=== PATIENT | female | born 1935 | race Caucasian/White ===

== ENCOUNTER 2016-11-30 15:18 | Emergency (ER) | payer MEDICARE, OTHER ==
[~2016-11-30] VITALS: Ht 167.6 cm; Wt 70.8 kg
[~2016-11-30 15:18] MED LIST: AML5T; AMLO5TAB2 PO; ASP81CT; ASP81CT PO; ATOR20TA66 PO; ATR20T; HCT25T; HYDR-757 PO; LISI10TA2 PO; MELO7.5T
--- NOTE | 2016-11-30 16:12 | ED Upper Extremity ---
General Chief Complaint: Upper Extremity Stated Complaint: L SHOULDER PAIN/URINATING FREQUENTLY Nursing Triage Note: Pt. advised she was seen at her pcp office on 11/25/16 for left shoulder pain. She advises she purchased a new vaccume overhead cleaner maintainer and is experiencing pain since using the vaccume. She advises despite prescribed medications the pain is continual and she is also experiencing an increase in urination. Nursing Sepsis Screen: No Definite Risk History of Present Illness Time seen by provider: 15:30 Initial Comments Patient presents for left shoulder pain since 11/25/16 and 2 days of increased urination with some pain. She was started on hydrocodone 5/325 mg for the shoulder pain and prednisone dose pack. Her last medication was hydrocodone 1/2 at noon today. Onset: other Severity: mild Pain/Injury Location: left shoulder Method of Injury: unknown Modifying Factors: Improves With Pain Medication Allergies and Home Medications Allergies Coded Allergies: cefdinir (Verified Allergy, Unknown, 10/11/08) celecoxib (Verified Allergy, Unknown, 10/11/08) cephalexin (Verified Allergy, Unknown, 10/11/08) methocarbamol (Verified Allergy, Unknown, 10/11/08) Home Medications Amlodipine Besylate 5 Mg Tablet #30 5 MG PO DAILY (Reported) Aspirin 81 Mg Chew 81 MG PO DAILY (Reported) Atorvastatin Calcium 20 Mg Tablet #30 20 MG PO HS (Reported) Hydrocodone Bit/Acetaminophen 1 Each Tablet #14 0.5-1 EA PO Q6H PRN PRN SEVERE PAIN Prescribed by: TYRONE BONE on 04/28/152024 Lisinopril 10 Mg Tablet #30 10 MG PO DAILY (Reported) Nitrofurantoin Monohyd/M-Cryst 100 Mg Capsule #10 1 TAB PO BID Prescribed by: JOSE ALFREDO NAVARRETE on 11/30/16 1746 Constitutional: no symptoms reported see HPI EENTM: no symptoms reported see HPI Respiratory: no symptoms reported see HPI Cardiovascular: no symptoms reported see HPI Gastrointestinal: no symptoms reported see HPI Genitourinary: see HPI frequency pain Musculoskeletal: see HPI joint pain (left shoulder) muscle cramps (left trapezius) Skin: no symptoms reported see HPI Psychiatric/Neurological: No Symptoms Reported See HPI All Other Systems Reviewed Negative Unless Noted: Yes Past Zxoiagl-Pitpeo-Xabgou Hx Patient Social History Former Smoker/When Quit: Oct 20, 1987 Recent Foreign Travel: No Contact w/Someone Who Travel: No Recent Infectious Disease Expo: No Recent Hopitalizations: Yes Immunizations Up To Date Tetanus Booster (TDap): More than 5yrs Surgeries HX Surgeries: Yes (BATHOLIAN GLAND, R ANKLE) Surgeries: Orthopedic Respiratory Hx Respiratory Disorders: No Cardiovascular Hx Cardiac Disorders: Yes Cardiac Disorders: High Cholesterol, Hypertension Neurological Hx Neurological Disorders: No Reproductive System Hx Reproductive Disorders: No Genitourinary Hx Genitourinary Disorders: No Gastrointestinal Hx Gastrointestinal Disorders: Yes Musculoskeletal Hx Musculoskeletal Disorders: Yes Musculoskeletal Disorders: Osteoporosis Endocrine Hx Endocrine Disorders: No HEENT HX ENT Disorders: No Cancer Hx Cancer: No Psychosocial Hx Psychiatric Problems: Yes Blood Transfusions Hx Blood Disorders: No Reviewed Nursing Assessment Reviewed/Agree w Nursing PMH: Yes Physical Exam Vital Signs Vital Sign - Last 12Hours 11/30/16 15:39 Temp 97.6 Pulse 70 Resp 14 B/P 156/69 Pulse Ox 98 O2 Delivery Room Air Capillary Refill : Less Than 3 Seconds General Appearance: WD/WN no apparent distress HEENT: PERRL/EOMI normal ENT inspection TMs normal pharynx normal Neck: non-tender full range of motion supple normal inspection other ( tenderness along the left trapezius, no pain with resisted shoulder shrug, power 5/5) Cardiovascular: normal peripheral pulses regular rate, rhythm no murmur Respiratory: chest non-tender lungs clear normal breath sounds Gastrointestinal: normal bowel sounds non tender soft Back: normal inspection no CVA tenderness no vertebral tenderness Shoulder: normal inspection (left) no evidence of injury (resisted external strength 5/5, negative impingement, no AC joint tenderness, negative apprehension) normal ROM pain (lateral humeral head) Elbow/Forearm: normal inspection, non-tender, normal ROM, Left Neurologic/Tendon: normal sensation normal motor functions normal tendon functions Neurologic/Psychiatric: no motor/sensory deficits alert normal mood/affect oriented x 3 Skin: normal color warm/dry Lymphatic: no adenopathy Progress/Results/Core Measures Results/Orders Lab Results My Orders Medications Given in ED Vital Signs/I&O Blood Pressure Mean: 98 Progress Note : Time: 15:30 Progress Note Initial evaluation completed, we'll obtain a UA and left shoulder x-rays. 1630 reviewed x-ray results with patient, no abnormalities seen. 1645 UA results reviewed reviewed with patient will start with Macrobid 100 mg by mouth now. She complains of some anxiety, obtain EKG. 1715 EKG normal. Discussed discharge instructions with patient, she verbalizes understanding. ECG Initial ECG Impression Date: Nov 30, 2016 Initial ECG Impression Time: 17:03 Initial ECG Rate: 82 Initial ECG Rhythm: Normal Sinus Initial ECG Intervals: Normal Initial ECG Impression: Normal Initial ECG Comparisson: No Previous ECG Available Comment MT 139; QRSD 84; QT 384; QTc 449 [place] P -32; QRS 31; T -[address] Baugh agreed with interpretation. Diagnostic Imaging Diagonstic Imaging: Xray Plain Films/CT/US/NM/MRI: other Comments NAME: GRACIA VENTURA [facility] REC#: [id number] PT STATUS: REG ER : 1935 PHYSICIAN: JOSE ALFREDO NAVARRETE ADMIT DATE: 11/30/16/ER Draft Date of Exam:11/30/16 SHOULDER, LEFT, 3 VIEWS INDICATION: Left shoulder pain for two months. No known trauma. EXAMINATION: Left shoulder, 11/30/2016. COMPARISON: No priors available for comparison. FINDINGS: Three views of the left shoulder demonstrate calcifications within the visualized left upper lung, likely due to calcified pleural plaques. Chronic change in the shoulder with no acute fractures. There are likely old rib fractures throughout the left hemithorax. No definite acute fracture is appreciated. IMPRESSION: Chronic changes within the visualized left lung with no acute osseous abnormality appreciated. Dictated on workstation # [id number] Dict: 11/30/16 1633 Trans: 11/30/16 1646 [facility] [id number] Interpreted by: JOSE HAHN MD Electronically signed by: Reviewed: Reviewed by Me, Reviewed/Discussed Departure Impression Impression: Primary Impression: Urinary tract infection Qualified Code: N30.01 - Acute cystitis with hematuria Additional Impression: Trapezius strain Qualified Code: S46.812A - Strain of other muscles, fascia and tendons at shoulder and upper arm level, left arm, initial encounter Disposition: HOME, SELF-CARE Condition: Stable Departure-Patient Inst. Decision time for Depature: 17:15 Referrals: JANAY OBRIEN DO (PCP/Family) Primary Care Physician Patient Instructions: Neck Sprain (DC), Urinary Tract Infection, Adult (DC) Add. Discharge Instructions: All discharge instructions reviewed with patient and/or family. Voiced understanding. Increase fluid intake. 1 cup of cranberry juice a day. Warm moist compresses to left shoulder and neck. Take all of antibiotic. Follow-up appointment with Dr. Obrien for Friday. Return to emergency room for worsening symptoms, fever or new concerns. Scripts Nitrofurantoin Monohyd/M-Cryst (Macrobid 100 mg Capsule)100 Mg Capsule1 Tab PO BID #10 CAP Ref 0 Prov:JOSE ALFREDO NAVARRETE 11/30/16 Copy Copies To 1: JANAY OBRIEN AMY ARNP Nov 30, 2016 16:12 Initial ECG Rhythm: Normal Sinus Initial ECG Intervals: Normal Initial ECG Impression: Normal Initial ECG Comparisson: No Previous ECG Available Comment MT 139; QRSD 84; QT 384; QTc 449 [place] P -32; QRS 31; T -[address] Baugh agreed with interpretation. Diagnostic Imaging Diagonstic Imaging: Xray Plain Films/CT/US/NM/MRI: other Comments NAME: GRACIA VENTURA [facility] REC#: [id number] PT STATUS: REG ER : 1935 PHYSICIAN: JOSE ALFREDO NAVARRETE ADMIT DATE: 11/30/16/ER Draft Date of Exam:11/30/16 SHOULDER, LEFT, 3 VIEWS INDICATION: Left shoulder pain for two months. No known trauma. EXAMINATION: Left shoulder, 11/30/2016. COMPARISON: No priors available for comparison. FINDINGS: Three views of the left shoulder demonstrate calcifications within the visualized left upper lung, likely due to calcified pleural plaques. Chronic change in the shoulder with no acute fractures. There are likely old rib fractures throughout the left hemithorax. No definite acute fracture is appreciated. IMPRESSION: Chronic changes within the visualized left lung with no acute osseous abnormality appreciated. Dictated on workstation # [id number] Dict: 11/30/16 1633 Trans: 11/30/16 1646 [facility] [id number] Interpreted by: JOSE HAHN MD Electronically signed by: Reviewed: Reviewed by Me, Reviewed/Discussed Departure Impression Impression: Primary Impression: Urinary tract infection Qualified Code: N30.01 - Acute cystitis with hematuria Additional Impression: Trapezius strain Qualified Code: S46.812A - Strain of other muscles, fascia and tendons at shoulder and upper arm level, left arm, initial encounter Disposition: 01 HOME, SELF-CARE Condition: Stable Departure-Patient Inst. Decision time for Depature: 17:15 Referrals: JANAY OBRIEN DO (PCP/Family) Primary Care Physician Patient Instructions: Neck Sprain (DC), Urinary Tract Infection, Adult (DC) Add. Discharge Instructions: All discharge instructions reviewed with patient and/or family. Voiced understanding. Increase fluid intake. 1 cup of cranberry juice a day. Warm moist compresses to left shoulder and neck. Take all of antibiotic. Follow-up appointment with Dr. Obrien for Friday. Return to emergency room for worsening symptoms, fever or new concerns. Scripts Nitrofurantoin Monohyd/M-Cryst (Macrobid 100 mg Capsule)100 Mg Capsule1 Tab PO BID #10 CAP Ref 0 Prov:JOSE ALFREDO NAVARRETE 11/30/16 Copy Copies To 1: JANAY OBRIEN AMY ARNP Nov 30, 2016 16:12
--- NOTE | 2016-11-30 16:46 | Diagnostic Imaging Report ---
INDICATION: Left shoulder pain for two months. No known trauma. EXAMINATION: Left shoulder, 11/30/2016. COMPARISON: No priors available for comparison. FINDINGS: Three views of the left shoulder demonstrate calcifications within the visualized left upper lung, likely due to calcified pleural plaques. Chronic change in the shoulder with no acute fractures. There are likely old rib fractures throughout the left hemithorax. No definite acute fracture is appreciated. IMPRESSION: Chronic changes within the visualized left lung with no acute osseous abnormality appreciated. Dictated by: Dictated on workstation # [id number]
[2016-11-30 17:15] LABS: BILIRUBIN,URINE NEGATIVE (NEGATIVE); KETONES,URINE NEGATIVE (NEGATIVE); LEUKOCYTE ESTERASE ,URINE 2+ (NEGATIVE); NITRITE,URINE NEGATIVE (NEGATIVE); PH,URINE 6 (5-9); PROTEIN,URINE NEGATIVE (NEGATIVE); UROBILINOGEN,URINE NORMAL (NORMAL)
[2016-11-30] MEDS ORDERED: HYDROcodone/APAP 5 MG/325 MG (LORTAB) TAB PO STA (17:20)
[2016-11-30 17:25] LABS: SQUAMOUS EPITHELIAL CELL,UR 0-2 /HPF
[2016-11-30] MEDS ORDERED: NITROFURANTOIN 100 MG (MACROBID) CAPSULE PO ONE (17:45)
[2016-11-30] MEDS ORDERED: NITR-65 PO (17:46)
[2016-11-30 17:55] VITALS: BP 156/69
== END 2016-11-30 18:14 | disposition home or self-care (01) ==
LOC: EDUNIT# 15:18 → ER 15:19
DX: N39.0 Urinary tract infection, site not specified (principal); S29.012A Strain of muscle and tendon of back wall of thorax, initial encounter; I10 Essential (primary) hypertension; Z79.82 Long term (current) use of aspirin; Z79.899 Other long term (current) drug therapy; X50.3XXA Overexertion from repetitive movements, initial encounter; Y93.E3 Activity, vacuuming; Y92.009 Unspecified place in unspecified non-institutional (private) residence as the place of occurrence of the external cause; Y99.8 Other external cause status
CPT/HCPCS: 73030; 81000; 87077; 87088; 87186; 93005

== ENCOUNTER → 2019-09-27 | Outpatient (CLI) | payer MEDICARE, OTHER ==
[~2019-09-27] MED LIST changes: +NITR-65 PO
--- NOTE | 2019-09-27 15:25 | Diagnostic Imaging Report ---
INDICATION: Low back pain. TECHNIQUE: Three views of the lumbar spine were obtained. FINDINGS: There is an age indeterminate compression fracture of the L1 vertebral body. The remaining lumbar vertebral body heights are well-maintained. There is no spondylolysis or spondylolisthesis. There is some lower lumbar hypertrophic degenerative facet disease. IMPRESSION: Age-indeterminate fracture of the L1 vertebral body. If there is high clinical concern that this may be acute, further evaluation with MRI should be considered as this would likely be amenable to kyphoplasty. Dictated by: Dictated on workstation # [id number]
== END ==
LOC: RAD 14:35
PROVIDERS: ATTEND Family Medicine
DX: S32.019A Unspecified fracture of first lumbar vertebra, initial encounter for closed fracture (principal); X58.XXXA Exposure to other specified factors, initial encounter
CPT/HCPCS: 72100

== ENCOUNTER 2020-09-20 05:54 | Outpatient (RCR) | payer MEDICARE, OTHER ==
[~2020-09-20] VITALS: Ht 157.5 cm; Wt 61.4 kg
[~2020-09-20 05:54] MED LIST changes: +AMLO-251 PO; +ASPI-999 PO
== END 2020-09-21 09:44 | disposition home or self-care (01) ==
LOC: PREOP 05:54
PROVIDERS: ATTEND Specialist
DX: Z01.812 Encounter for preprocedural laboratory examination (principal); H26.8 Other specified cataract; Z20.828 Contact with and (suspected) exposure to other viral communicable diseases
CPT/HCPCS: 87635

== ENCOUNTER → 2020-09-22 | Day surgery (SDC) | payer MEDICARE, OTHER ==
[~2020-09-22] VITALS: Ht 157.5 cm; Wt 61.4 kg
[~2020-09-22] MED LIST changes: +LIDOCAINE PF 1% 2 ML VIAL IR PRN; +MIDAZOLAM 2 MG/2 ML (VERSED) VIAL ONE; +MOXIFLOXACIN OPHTH SOLN 5 MG/ML 0.3 ML SYRINGE OP ONE; +POVIDONE (BETADINE) OPHTH SOLN 5% 30 ML OP ONE; +TIMOLOL MALEATE 0.5% 5 ML (TIMOPTIC) BTL OU PRN; +acetaZOLAMIDE ER 500 MG CAP (DIAMOX SEQUELS) PO ONE
[2020-09-22 09:15] VITALS: BP 145/71
[2020-09-22] MEDS: TETRACAINE 0.5% OPHTH SOLN 4 ML BTL (SINGLE DOSE ONLY) OU PRN ×4 (09:19→09:35)
[2020-09-22] MEDS: PHENYLEPHRINE 10% OPHTH (NEO-SYN) 5 ML BTL OU SCH ×3 (09:25→09:35)
[2020-09-22] MEDS: TROPICAMIDE 1% OPH SOLN (MYDRIACYL) 15 ML BTL OP SCH ×3 (09:25→09:35)
--- NOTE | 2020-09-22 10:08 | Ophthalmologist Pre-Op Note ---
Pre-Operative Progress Note H&P Reviewed The H&P was reviewed, patient examined and no changes noted. Date H&P Reviewed: Sep 22, 2020 Time H&P Reviewed: 10:08 Pre-Op Dx Cataract, Right Eye SUSAN ADDISON MD Sep 22, 2020 10:08
--- NOTE | 2020-09-22 10:35 | Ophthalmology Operative Report ---
Cataract removal/placement IOL PREOPERATIVE DIAGNOSIS: 1. Mature Cataract Left Eye 2. Stain the anterior capsule with Vision Blue. POSTOPERATIVE DIAGNOSIS: 1. Mature Cataract Left Eye 2. Stain the anterior capsule with Vision Blue. PROCEDURE: 1. Cataract removal and placement of posterior chamber implant, left eye. 2. Stain the anterior capsule with Vision Blue. SURGEON: Selwyn Addison ANESTHESIA: Topical with sedation COMPLICATIONS: None ESTIMATED BLOOD LOSS: Minimal DESCRIPTION OF PROCEDURE: After proper informed consent was obtained, the patient, 84 female ,was taken to the Operating Room and the left eye was anesthetized with tetracaine. The left eye was then prepped and draped in the usual manner. A wire lid speculum was placed. A paracentesis was made at the left hand position. Preservative free lidocaine was injected into anterior chamber followed by viscoelastic. A clear corneal incision was made in the temporal position. A capsulorrhexis was performed and the central nuclear and cortical material were removed. Vision blue was used to visualize capsule. The posterior capsule was polished and Jorje [id number] 17.5IOL was placed into the capsular bag. The residual vi scoelastic was aspirated and balanced saline solution was injected into the anterior chamber. Moxifloxacin was injected into the anterior chamber. The wound was checked and found to be water tight. The patient tolerated the procedure well without complications. SELWYN ADDISON MD Sep 22, 2020 10:35
[2020-09-22 10:39] VITALS: BP 141/61
--- NOTE | 2020-09-22 11:09 | Anesthesia-General Post-Op ---
MAC Patient Condition Mental Status/LOC: Same as Preop Cardiovascular: Satisfactory Nausea/Vomiting: Absent Respiratory: Satisfactory Pain: Controlled Complications: Absent Post Op Complications Complications None Follow Up Care/Instructions Patient Instructions None needed. Anesthesiology Discharge Order Discharge Order Patient is doing well, no complaints, stable vital signs, no apparent adverse anesthesia problems. No complications reported per nursing. ROXANA DERAS CRNA Sep 22, 2020 11:09
== END ==
LOC: SDC 08:50
PROVIDERS: ATTEND Specialist
DX: H25.12 Age-related nuclear cataract, left eye (principal); I10 Essential (primary) hypertension; E78.00 Pure hypercholesterolemia, unspecified; Z79.899 Other long term (current) drug therapy; Z88.1 Allergy status to other antibiotic agents; Z88.8 Allergy status to other drugs, medicaments and biological substances
CPT/HCPCS: 66982; V2632

== ENCOUNTER 2020-09-27 05:37 | Outpatient (RCR) | payer MEDICARE, OTHER ==
[~2020-09-27] VITALS: Ht 157 cm; Wt 61.3 kg
[~2020-09-27 05:37] MED LIST changes: -LIDOCAINE PF 1% 2 ML VIAL IR PRN; -MIDAZOLAM 2 MG/2 ML (VERSED) VIAL ONE; -MOXIFLOXACIN OPHTH SOLN 5 MG/ML 0.3 ML SYRINGE OP ONE; -POVIDONE (BETADINE) OPHTH SOLN 5% 30 ML OP ONE; -TIMOLOL MALEATE 0.5% 5 ML (TIMOPTIC) BTL OU PRN; -acetaZOLAMIDE ER 500 MG CAP (DIAMOX SEQUELS) PO ONE
== END 2020-09-27 11:37 | disposition home or self-care (01) ==
LOC: PREOP 05:37
PROVIDERS: ATTEND Specialist
DX: Z01.818 Encounter for other preprocedural examination (principal); H25.11 Age-related nuclear cataract, right eye; Z20.828 Contact with and (suspected) exposure to other viral communicable diseases
CPT/HCPCS: 87635

== ENCOUNTER 2020-09-29 09:55 | Day surgery (SDC) | payer MEDICARE, OTHER ==
[~2020-09-29] VITALS: Ht 157 cm; Wt 61.3 kg
[2020-09-29 09:55] VITALS: BP 176/79
[2020-09-29] MEDS: TETRACAINE 0.5% OPHTH SOLN 4 ML BTL (SINGLE DOSE ONLY) OU PRN ×4 (10:07→10:31)
[2020-09-29] MEDS ORDERED: MIDAZOLAM 2 MG/2 ML (VERSED) VIAL ONE (10:12)
[2020-09-29] MEDS ORDERED: TIMOLOL MALEATE 0.5% 5 ML (TIMOPTIC) BTL OU PRN (10:15)
[2020-09-29] MEDS ORDERED: MOXIFLOXACIN OPHTH SOLN 5 MG/ML 0.3 ML SYRINGE OP ONE (10:15)
[2020-09-29] MEDS ORDERED: LIDOCAINE PF 1% 2 ML VIAL IR PRN (10:15)
[2020-09-29] MEDS ORDERED: POVIDONE (BETADINE) OPHTH SOLN 5% 30 ML OP ONE (10:15)
[2020-09-29] MEDS: PHENYLEPHRINE 10% OPHTH (NEO-SYN) 5 ML BTL OU SCH ×3 (10:19→10:31)
[2020-09-29] MEDS: TROPICAMIDE 1% OPH SOLN (MYDRIACYL) 15 ML BTL OP SCH ×3 (10:19→10:31)
--- NOTE | 2020-09-29 10:51 | Ophthalmologist Pre-Op Note ---
Pre-Operative Progress Note H&P Reviewed The H&P was reviewed, patient examined and no changes noted. Date H&P Reviewed: Sep 29, 2020 Time H&P Reviewed: 10:51 Pre-Op Dx Cataract, Right Eye SUSAN ADDISON MD Sep 29, 2020 10:51
--- NOTE | 2020-09-29 11:17 | Ophthalmology Operative Report ---
Cataract removal/placement IOL PREOPERATIVE DIAGNOSIS: Cataract Right Eye POSTOPERATIVE DIAGNOSIS: Cataract Right Eye PROCEDURE: Cataract removal and placement of posterior chamber implant, right eye SURGEON: Selwyn Addison ANESTHESIA: Topical with sedation COMPLICATIONS: None ESTIMATED BLOOD LOSS: Minimal DESCRIPTION OF PROCEDURE: After proper informed consent was obtained, the patient, a 84 female, was taken to the Operating Room and the right eye was anesthetized with tetracaine. The right eye was then prepped and draped in the usual manner. A wire lid speculum was placed. A paracentesis was made at the left hand position. Preservative free lidocaine was injected into the anterior chamber followed by viscoelastic. A clear corneal incision was made in the temporal position. A capsulorrhexis was preformed and the central nuclear and cortical material were removed. The posterior capsule was polished and Jorje 18.0 AU00T0 IOL was placed into the capsular bag. The residual viscoelastic was aspirated and balanced saline solution was injected into the anterior chamber. Moxifloxacin was injected into the anterior chamber. The wound was checked and found to be water tight. The patient tolerated the procedure well without complications. SELWYN ADDISON MD Sep 29, 2020 11:17
[2020-09-29 11:28] VITALS: BP 152/63
[2020-09-29] MEDS ORDERED: acetaZOLAMIDE ER 500 MG CAP (DIAMOX SEQUELS) PO ONE (11:30)
--- NOTE | 2020-09-29 11:37 | Anesthesia-General Post-Op ---
MAC Patient Condition Mental Status/LOC: Same as Preop Cardiovascular: Satisfactory Nausea/Vomiting: Absent Respiratory: Satisfactory Pain: Controlled Complications: Absent Post Op Complications Complications None Follow Up Care/Instructions Patient Instructions None needed. Anesthesiology Discharge Order Discharge Order Patient is doing well, no complaints, stable vital signs, no apparent adverse anesthesia problems. No complications reported per nursing. XAVIER LILLY CRNA Sep 29, 2020 11:37
== END 2020-09-29 11:28 | disposition home or self-care (01) ==
LOC: SDC 09:55
PROVIDERS: ATTEND Specialist
DX: H25.11 Age-related nuclear cataract, right eye (principal); I10 Essential (primary) hypertension; E78.00 Pure hypercholesterolemia, unspecified; Z79.899 Other long term (current) drug therapy; Z88.1 Allergy status to other antibiotic agents; Z88.5 Allergy status to narcotic agent; Z88.8 Allergy status to other drugs, medicaments and biological substances
CPT/HCPCS: 66984; V2632

== ENCOUNTER → 2021-05-04 | Outpatient (CLI) | payer MEDICARE, OTHER | LOC: CARD 10:30 | PROVIDERS: ATTEND Family Medicine | DX: I49.9 Cardiac arrhythmia, unspecified (principal) | CPT/HCPCS: 93005 ==

== ENCOUNTER → 2022-07-26 | Outpatient (CLI) | payer MEDICARE, OTHER ==
--- NOTE | 2022-07-26 14:48 | Diagnostic Imaging Report ---
INDICATION: Back pain, status post fall. COMPARISON: None FINDINGS: Frontal and lateral radiographic views of the thoracic spine were obtained. Upper thoracic spine is obscured on the lateral view due to overlying osseous and soft tissue structures. There is mild to moderate dextroscoliotic deformity of the upper thoracic spine. AP static alignment appears appropriate. There is no evidence of jumped facets. The visualized vertebral body heights appear maintained. Mild multilevel degenerative changes are noted. Included portions of the lungs are clear. IMPRESSION: 1. No definite acute fracture or dislocation of the thoracic spine, although the upper thoracic levels are not well visualized. 2. Mild multilevel degenerative changes. Dictated by: Dictated on workstation # [id number]
--- NOTE | 2022-07-26 14:50 | Diagnostic Imaging Report ---
INDICATION: Recent fall. Back pain. COMPARISON: 09/27/2019. FINDINGS: Frontal and lateral radiographic views of the lumbar spine were obtained. Static alignment is preserved. There is no evidence of jumped facets. There is no significant bipin or retrolisthesis. Since the previous exam, there has been interval compression deformity of the superior endplate of L2. This is age-indeterminate based on this exam but is concerning for potential acute injury. There has been interval progression of vertebral body height loss at the L1 level. This may be chronic but acute on chronic injury is not entirely excluded. Multilevel degenerative changes are also noted. There is also extensive calcified aortic arterial and atherosclerosis. No unexpected radiopaque foreign bodies are seen. IMPRESSION: 1. Compression deformity of L2. Again, this is age-indeterminate based on this exam but is new when compared to 09/27/2019 and may be acute in nature. Correlation with MRI may be of benefit. 2. Probable chronic deformity of L1 although acute on chronic injury cannot be excluded. Dictated by: Dictated on workstation # [id number]
== END ==
LOC: RAD 13:19
PROVIDERS: ATTEND Family Medicine
DX: M47.814 Spondylosis without myelopathy or radiculopathy, thoracic region (principal); M43.8X6 Other specified deforming dorsopathies, lumbar region; W19.XXXA Unspecified fall, initial encounter
CPT/HCPCS: 72072; 72100

== ENCOUNTER → 2022-08-30 | Outpatient (CLI) | payer MEDICARE, OTHER ==
--- NOTE | 2022-08-30 12:24 | Diagnostic Imaging Report ---
PROCEDURE: CT head without contrast. TECHNIQUE: Multiple contiguous axial images were obtained through the brain without the use of intravenous contrast. Auto Exposure Controls were utilized during the CT exam to meet ALARA standards for radiation dose reduction. INDICATION: Confusion, forgetfulness, dementia. COMPARISONS: None FINDINGS: Midline structures are not displaced. There are senescent changes in the brain with involutional changes and generalized atrophy slightly advanced for age. There are background chronic areas of microvascular ischemic change. There is no mass, mass effect, hydrocephalus or hemorrhage. Greer-white differentiation is maintained and there is no sulcal effacement. Slight prominence of the extra-axial CSF spaces due to involutional changes. There are no abnormal extra axial fluid collections or hemorrhage. Basilar cisterns appear normal. There is calcific atherosclerosis within the carotid siphons. Sinuses, orbits and mastoid air cells are grossly unremarkable. Bone windows show no calvarial changes. IMPRESSION: Senescent changes in the brain with involutional changes with background chronic areas of microvascular ischemic change. This calcific atherosclerosis within the carotid siphons otherwise unremarkable nonenhanced CT brain. If symptoms warrant, an nonemergent MRI may be of further value. Dictated on workstation # [id number]
== END ==
LOC: RAD 10:33
PROVIDERS: ATTEND Family Medicine
DX: I67.82 Cerebral ischemia (principal); I65.29 Occlusion and stenosis of unspecified carotid artery; F03.90 Unspecified dementia, unspecified severity, without behavioral disturbance, psychotic disturbance, mood disturbance, and anxiety
CPT/HCPCS: 70450